=== PATIENT | male | born 1975 | race American Indian/Alaskan Native ===

== ENCOUNTER 2017-03-27 21:00 | Emergency (ER) | payer OTHER ==
[2017-03-27 21:00] VITALS: BMI 32.3
[2017-03-27 21:16] VITALS: TEMP 98.3
[2017-03-27] MEDS ORDERED: Glucagon Recombinant 1 mg Inj IM STA (21:32)
[2017-03-27] MEDS ORDERED: Sodium Chloride 0.9% 1,000 ML IV STA (21:46)
[2017-03-27] MEDS ORDERED: Glucagon Recombinant 1 mg Inj IV STA (21:48)
[2017-03-27] MEDS ORDERED: DiphenhydrAMINE 50 mg/ml Inj IVP STA (21:48)
[2017-03-27] MEDS ORDERED: Sodium Chloride 0.9% 1,000 ML ONE (22:02)
[2017-03-27] MEDS ORDERED: DiphenhydrAMINE 50 mg/ml Inj ONE (22:02)
[2017-03-27] MEDS ORDERED: Glucagon Recombinant 1 mg Inj ONE (22:03)
[2017-03-27 22:10] LABS: BASO # 0.1 K/uL (0.0-0.2); BASO % 0.9 % (0.0-2.0); EOS # 0.3 K/uL (0.0-0.7); EOS % 4.6 % (0.0-4.0); HEMATOCRIT 46.7 % (35.0-51.0); LYMPH % 27.9 % (20.0-40.0); MEAN CELL VOLUME 85.2 fL (80.0-94.0); MEAN CORPUSCULAR HEMOGLOBIN 29.2 pg (27.0-31.0); MEAN CORPUSCULAR HGB CONC 34.3 g/dL (33.0-37.0); MEAN PLATELET VOLUME 9.2 fL (7.2-11.7); MONO # 0.7 K/uL (0.0-0.8); MONO % 9.9 % (0.0-10.0); NRBC % 0.1 % (0.0-2.0); RED CELL DISTRIBUTION WIDTH 13.1 % (11.5-14.5)
[2017-03-27 22:18] LABS: INR 1.1
--- NOTE | 2017-03-27 22:47 | C.PDOC ---
History Of Present Illness <Hortensia Neves - Last Filed: 03/27/17 22:55> <Shahzad Pitt - Last Filed: 03/27/17 23:37> Patient sts he was eating seafood salad when he felt like peace of meat stuck in his throat prior to arrival. Patient sts its hard for his to swallow. (Hortensia Neves) History Per: Patient, Family History/Exam Limitations: no limitations Onset/Duration Of Symptoms: Sudden Onset Current Symptoms Are (Timing): Still Present Severity: Moderate <Hortensia Neves - Last Filed: 03/27/17 22:55> <Shahzad Pitt - Last Filed: 03/27/17 23:37> Time Seen by Provider: 03/27/17 21:23 Chief Complaint (Nursing): Medical Clearance Past Medical History Reviewed: Historical Data, Nursing Documentation, Vital Signs - Medical History PMH: Asthma Denies: HTN, Chronic Kidney Disease Family History: States: Unknown Family Hx - Social History Hx Tobacco Use: Yes Hx Alcohol Use: Yes Hx Substance Use: No - Immunization History Hx Tetanus Toxoid Vaccination: No Hx Influenza Vaccination: No Hx Pneumococcal Vaccination: No <EdinsonHortensia - Last Filed: 03/27/17 22:55> Review Of Systems Except As Marked, All Systems Reviewed And Found Negative. <EdinsonHortensia - Last Filed: 03/27/17 22:55> Physical Exam - Physical Exam Appears: Non-toxic, No Acute Distress, Other (uncomfortable) Skin: Normal Color, Warm, No Rash Head: Atraumatic, Normacephalic Eye(s): bilateral: Normal Inspection Nose: Normal, No Flaring, No Discharge Oral Mucosa: Moist, No Drooling, No Trismus Tongue: No Normal Appearing, No Swelling, No Lesions Lips: No Swelling Gingiva: Normal Appearing, No Erythema, No Swelling Throat: Normal, No Erythema, No Exudate, No Drooling, Other (patent airway, uvula is midline, speaks in full sentanses, normal voice) Neck: Normal, Supple Chest: Symmetrical, No Tenderness Cardiovascular: Rhythm Regular Respiratory: Normal Breath Sounds, No Accessory Muscle Use, No Rales, No Rhonchi , No Stridor, No Wheezing Gastrointestinal/Abdominal: Normal Exam, Soft, No Tenderness Extremity: Normal ROM Neurological/Psych: Oriented x3, Normal Speech, Normal Cognition <Hortensia Neves - Last Filed: 03/27/17 22:55> ED Course And Treatment - Laboratory Results Result Diagrams: 03/27/17 22:03 O2 Sat by Pulse Oximetry: 95 Progress Note: Labs, IVF, Benadryl IV, Solu-medrol IV, Glucogone, CT neck and chect were ordered. patient was placed on cardial monitor, O2 enrober via NC. At 23:00 case was signed out to . <Hortensia Neves - Last Filed: 03/27/17 22:55> - Laboratory Results Result Diagrams: 03/27/17 22:03 03/27/17 22:03 <Shahzad Pitt - Last Filed: 03/27/17 23:37> Medical Decision Making <Hortensia Neves - Last Filed: 03/27/17 22:55> <Shahzad Pitt - Last Filed: 03/27/17 23:37> Medical Decision Making: signed over @ 2300 to f/u CT neck/esophagus to r/o foreign body ingested @ dinner Pt had a 7 y/o son who swallowed a quarter 3 days ago requiring upper endoscopy to remove CT reviewed- no FB in esophagus pt drank entire cup of cold water without dyshpagia nor regurgitation A/P: no retained esophageal FB ok to d/c home. (Shahzad Pitt) Disposition - Disposition Disposition Time: 23:00 <Hortensia Neves - Last Filed: 03/27/17 22:55> Doctor Will See Patient In The: Office Counseled Patient/Family Regarding: Studies Performed, Diagnosis <Shahzad Pitt - Last Filed: 03/27/17 23:37> - Disposition Disposition: HOME/ ROUTINE Condition: GOOD - Clinical Impression Clinical Impression: Dysphagia Physician Patient Turnover Patient Signed Over To: Shahzad Pitt Handoff Comments: CT neck/chest pending, re-evaluation, disposition <Hortensia Neves - Last Filed: 03/27/17 22:55>
[2017-03-27 23:10] LABS: CHLORIDE 95 mmol/L (98-107); POTASSIUM 4.3 mmol/L (3.6-5.2); SODIUM 137 mmol/L (132-148)
[2017-03-27 23:12] LABS: AST/SGOT 38 U/L (17-59); BILIRUBIN,TOTAL 0.6 mg/dL (0.2-1.3); CARBON DIOXIDE 29 mmol/L (22-30); GFR AFRICAN-AMERICAN > 60
[2017-03-27 23:13] LABS: ALB/GLOB RATIO 1.2 (1.0-2.1); ALKALINE PHOSPHATASE 85 U/L (38-126); ALT/SGPT 53 U/L (21-72); BLOOD UREA NITROGEN 11 mg/dL (9-20); CALCIUM 9.2 mg/dl (8.6-10.4); GLUCOSE,RANDOM 96 mg/dL (75-110); TOTAL PROTEIN 8.4 g/dL (6.3-8.3)
[2017-03-27 23:52] VITALS: BP 152/57; PULSE 81; RESP 16; O2SAT 96
--- NOTE | 2017-03-28 09:07 | RAD ---
PROCEDURE: CHEST RADIOGRAPH, 1 VIEW HISTORY: dyspnea COMPARISON: None available. FINDINGS: LUNGS: Clear. PLEURA: No pneumothorax or pleural fluid seen. CARDIOVASCULAR: Normal. OSSEOUS STRUCTURES: No significant abnormalities. VISUALIZED UPPER ABDOMEN: Normal. OTHER FINDINGS: None. IMPRESSION: No active disease.
--- NOTE | 2017-03-28 10:26 | CT ---
PROCEDURE: CT Chest without contrast HISTORY: ? FB stuck in the throat/esophagus COMPARISON: None. TECHNIQUE: Contiguous axial images were obtained through the neck and chest without intravenous contrast enhancement. Sagittal and coronal reconstructions were performed. Radiation dose (DLP): 1133.85 mGy-cm. This CT exam was performed using one or more of the following dose reduction techniques: Automated exposure control, adjustment of the mA and/or kV according to patient size, and/or use of iterative reconstruction technique. FINDINGS: CT of the neck: There is no evidence of radiopaque foreign body in the neck. The upper airway is patent. No evidence of mass lesion or significant lymphadenopathy in the neck. The parotid submandibular and thyroid glands are grossly unremarkable. No evidence of acute pathology in the visualized portion of the brain and maxillofacial bones. LUNGS: Slight emphysematous changes noted at the lung apices. No evidence of acute pulmonary disease. MEDIASTINUM: Unremarkable thoracic aorta. No aneurysm. Normal sized heart. Main pulmonary artery unremarkable. No vascular congestion. No lymphadenopathy. PLEURA: No pleural fluid. No pneumothorax. BONES: No fracture. No destructive lesion. UPPER ABDOMEN: Grossly unremarkable. OTHER FINDINGS: None. IMPRESSION: No evidence of radiopaque foreign body in the neck and chest. No CT evidence of acute pathology in the neck and chest. Preliminary report was submitted by [facility].
--- NOTE | 2017-04-01 15:05 | CARD ---
APPROVED REPORT EKG Measurement Heart [id number] VT [id number] <Conclusion> Normal sinus rhythm Normal ECG
== END 2017-03-27 23:56 | disposition home or self-care (01) ==
LOC: C.ER 21:00
DX: R13.10 Dysphagia, unspecified (principal)
CPT/HCPCS: 70490; 71010; 71250; 80053; 82550; 82553; 84484; 85025; 85610; 85730; 93005; 96361; 96374; 96375; 99285; J1200; J1610; J2930; J7040